=== PATIENT | male | born 1980 | race Caucasian/White ===

== ENCOUNTER → 2017-02-05 | Day surgery (SDC) | payer OTHER ==
[~2017-02-05] MED LIST: BUPIVACAINE/EPINEPHRINE 0.25% 50 ML VIAL ONE; KETOROLAC TROMETHAMINE 30 MG/ML (IVP) VIAL IV PUSH ONE; LACTATED RINGER'S 1000 ML INJ 1,000 ML ONE; MEPERIDINE HCL 25 MG/ML VIAL ONE; MIDAZOLAM HCL 2 MG/2 ML VIAL ONE; MORPHINE SULFATE 4 MG/ML INJ ONE; ONDANSETRON HCL 4 MG/2 ML VIAL IV PUSH ONE; PROPOFOL 200 MG/20 ML AMP IV ONE; ceFAZolin 2 GM PREMIX 50 ML ONE
--- NOTE | 2017-02-05 15:10 | TN ---
cc: STEPHEN HERNANDEZ M.D. DATE OF SURGERY 02/05/17 PREOPERATIVE DIAGNOSIS Bilateral inguinal hernia. POSTOPERATIVE DIAGNOSIS Bilateral inguinal hernia. PROCEDURE Laparoscopic repair bilateral inguinal hernia with mesh. SURGEON Dr. Stephen Hernandez HUMAN RESOURCES CLERK Khalida Butt, [employer] ANESTHESIA General. INDICATIONS This is a very pleasant 36-year-old gentleman who developed a symptomatic right inguinal hernia. Incidentally discovered to have a left inguinal hernia as well on exam. Plans are made for operative repair via the laparoscopic approach. INTRAOPERATIVE FINDINGS The right side direct inguinal hernia with incarcerated preperitoneal fat. Left indirect inguinal hernia. Small spermatic cord lipoma. ESTIMATED BLOOD LOSS Less than 5 ml. PROCEDURE This procedure was assisted by my nurse practitioner. Skill set of an [employer] was medically necessary to provide excellent visualization laparoscopically and to provide increased efficiency in the performance of the procedure. The surgical aides teacher was of the back table providing appropriate instrumentation while the nurse practitioner was directly assisting me. DESCRIPTION OF PROCEDURE IN DETAIL The patient was identified as Eric Abarca, taken to the operating room, placed in the supine position. Sequential compression devices were placed on bilateral lower extremities. Following induction of adequate general anesthesia the patient's lower abdomen was prepped and draped in the usual sterile fashion with Betadine. A time-out procedure was performed. Following completion of time-out procedure to everyone's satisfaction within the room local anesthetic was placed in the infraumbilical position and at each incision site. 2 cm infraumbilical incision was carried out with a scalpel and dissection continued posterior to the level of the anterior rectus fascia on the right side. This was incised in its medial border and a preperitoneal plane was developed with surgeon's finger directed towards the pubic symphysis. With the patient slight Trendelenburg position preperitoneal dissecting balloon was placed in preperitoneal space and inflated to a total approximately 30 pumps under direct laparoscopic view. The balloon was desufflated, removed and the structural balloon trocar placed in the preperitoneal space, its balloon inflated to insufflation until a level of 11 mmHg ensued. Two infraumbilical midline 5 mm trocars were then placed in the preperitoneal space under direct laparoscopic view after incision of the skin with scalpel. Attention was turned first to the right side. Anatomic structures were identified including pubic symphysis and right side Eleazar's ligament and the inferior epigastric vessels. Blunt graspers were used to reduce the incarcerated preperitoneal fat from a direct hernia pseudo sac which was then tacked down to the anterior Eleazar's ligament with the capture device. Blunt dissection lateral and posterior to the spermatic cord was then performed and adherent peritoneum was reduced to the base of the spermatic cord. There was no evidence of spermatic cord lipoma. A 4 x 6 inch piece of [employer]rium ProLigh mesh was cut with an anterolateral slit placed around the spermatic cord and tacked into position with the capture device. Tacks were placed to approximate the anterolateral slit along the inferior medial border of mesh and superior medial border of the mesh. A 2 x 6 inch piece of the mesh was placed across the anterolateral slit and held into position with the ProTack device, superior laterally and inferior medially. All potential hernia sites were broadly covered including the direct hernia defect. Care was taken to avoid tack placement inferolaterally to avoid cutaneous nerve injury. Attention was then turned to the left side. Similar blunt dissection was performed with identification of pertinent anatomy. There was no evidence of direct or femoral defect on the left side. Blunt dissection lateral and posterior to the spermatic cord allowed for identification of an indirect inguinal hernia sac which was reduced from the inguinal canal to the base of the spermatic cord using blunt graspers. A small spermatic cord lipoma was similarly reduced from the inguinal canal into the preperitoneal space. A 4 x 6 inch piece of Atrium ProLight mesh was cut with an anterolateral slit placed around the spermatic cord and tacked in position with the capture device. Tacks were placed to approximate the anterolateral slit along the Eleazar's ligament and the superior medial border of the mesh. 2 x 6 inch piece of the mesh was placed across the anterolateral slit and tacked position superior laterally and inferior medially. Potential hernia sites including the indirect defect were broadly covered with mesh. Photographs were taken at completed repair. Remaining local anesthetic 20 cc was placed in the preperitoneal space. Trocars were removed under direct visualization and inferolateral mesh was held against the abdominal wall while the preperitoneal space was desufflated. The infraumbilical trocar was removed and the anterior rectus fascial incision was closed with running 2-0 Vicryl suture. Port site skin incisions were approximated with 4-0 Monocryl subcuticular sutures. Dressings were applied with Mastisol, half inch brown Steri-Strips. The patient tolerated the procedure without apparent complication. Sponge, needle and instrument counts were correct at the end of the case. MD AIRAM Howe/EO /2:40 PM /2:51 PM
== END | disposition home or self-care (01) ==
LOC: ESDC 11:50
PROVIDERS: ATTEND Surgery Trauma Surgery
DX: K40.20 Bilateral inguinal hernia, without obstruction or gangrene, not specified as recurrent (principal)
CPT/HCPCS: 00840; 49650; C1727; C1781; J0690; J1885; J2175; J2250; J2270; J2405; J3010; J7120